=== PATIENT | male | born 1965 | race Caucasian/White ===

== ENCOUNTER 2017-07-25 12:41 | Outpatient (CLI) | payer MEDICARE ==
--- NOTE | 2017-07-25 14:33 | RAD ---
CERVICAL SPINE TWO VIEWS: HISTORY: Fall. Neck injury. COMPARISON: CT exam from 04/23/2017. FINDINGS: Anterior fixation hardware is in place at the C5-6 level without perihardware lucency. There is reve rsal of the normal lordotic curvature. Flowing syndesmophytes suggest ankylosing spondylitis. IMPRESSION: 1. Ankylosing spondylitis. Anterior operative fixation of the lower cervical spine. 2. No acute osseous abnormalities are demonstrated. POS: [facility]
== END 2017-07-25 12:42 | disposition home or self-care (01) ==
LOC: TBSIIMAG 12:41
PROVIDERS: ATTEND Neurological Surgery
DX: S12.9XXA Fracture of neck, unspecified, initial encounter (principal); M45.2 Ankylosing spondylitis of cervical region
CPT/HCPCS: 72040

== ENCOUNTER 2018-05-02 10:41 | Day surgery (SDC) | payer MEDICARE, OTHER ==
[2018-05-02] MEDS ORDERED: PROPOFOL 200 MG/20 ML VIAL ONE (14:16)
[2018-05-02] MEDS ORDERED: Lidocaine 1% PF 5 ML VIAL ONE (14:16)
--- NOTE | 2018-05-02 17:03 | OP ---
DATE OF PROCEDURE: 05/02/2018 PROCEDURE: Colonoscopy with polypectomy and biopsy. INDICATION FOR PROCEDURE: Screening for malignant neoplasm of the colon (no family history of colon polyps or colon cancer). DESCRIPTION OF PROCEDURE: After the risks and benefits of the procedure were explained to the patien t including risk of bleeding, infection, perforation, reactions to anesthesia, aspiration and/or pain , informed consent was obtained. The patient was then taken to the endoscopy suite where deep sedati on was administered via propofol and anesthesia support. Once adequate sedation was achieved, a digi moi rectal examination was performed. Once this was complete, the standard colonoscope was introduce d into the rectum and advanced to the terminal ileum with no difficulty. The quality of the prep was excellent. The patient tolerated the procedure well with no immediate perioperative complications. DIGITAL RECTAL EXAMINATION: Normal external examination. COLON FINDINGS: Normal appearing mucosa was seen within the terminal ileum as well as at the ileocec al valve and appendiceal orifice. Normal appearing mucosa was seen in the cecum and ascending colon, 2 polyps measuring 3 mm in size were seen in the transverse colon and completely removed with cold s nare polypectomy. They were retrieved and placed in specimen jar for evaluation, four additional judy yps measuring 3-4 mm in size were seen in the descending colon and completely removed with cold snare polypectomy. They were retrieved and placed in a specimen jar for evaluation. Normal appearing muc sawyer was seen in the sigmoid colon; however, at approximately 10-15 cm past the anal verge, there were patches of increased mucosal erythema as well as superficial ulceration without any evidence of acti ve/recent bleeding seen. Multiple biopsies were taken from this area for further evaluation. Otherw ise, the remainder of the rectum appeared normal. On rectal retroflexion, small internal hemorrhoids and hypertrophied anal papillae were seen. IMPRESSION: 1. Two 3 mm polyp seen in the transverse colon and completely removed with cold snare polypectomy. 2. Four 3-4 mm descending colon polyps, status post cold snare polypectomy. 3. Small internal hemorrhoids. 4. Hypertrophied anal papillae. 5. Circumferential area between 10-15 cm past the anal verge characterized as increased patchy mucos al erythema and overlying superficial ulceration concerning for the presence of inflammatory bowel di sease versus prep effect on the colon. RECOMMENDATIONS: 1. We will follow up on the biopsy results with repeat colonoscopy interval depending on pathology r esults. 2. We would have the patient follow up in the GI clinic in 3 weeks for further evaluation related to possible inflammatory bowel disease.
== END 2018-05-02 13:45 | disposition home or self-care (01) ==
LOC: SDC 10:41
PROVIDERS: ATTEND Internal Medicine
PROC: 0DBP8ZX Excision of Rectum, Via Natural or Artificial Opening Endoscopic, Diagnostic (ICD-10-PCS; principal; 2018-05-02)
PROC: 0DBL8ZX Excision of Transverse Colon, Via Natural or Artificial Opening Endoscopic, Diagnostic (ICD-10-PCS; principal; 2018-05-02)
PROC: 0DBM8ZX Excision of Descending Colon, Via Natural or Artificial Opening Endoscopic, Diagnostic (ICD-10-PCS; principal; 2018-05-02)
DX: Z12.11 Encounter for screening for malignant neoplasm of colon (principal); D12.4 Benign neoplasm of descending colon; K63.5 Polyp of colon; K64.4 Residual hemorrhoidal skin tags; K64.8 Other hemorrhoids; K62.6 Ulcer of anus and rectum; E11.42 Type 2 diabetes mellitus with diabetic polyneuropathy; I12.9 Hypertensive chronic kidney disease with stage 1 through stage 4 chronic kidney disease, or unspecified chronic kidney disease; E11.22 Type 2 diabetes mellitus with diabetic chronic kidney disease; N18.3 Chronic kidney disease, stage 3 (moderate); M19.90 Unspecified osteoarthritis, unspecified site; G47.00 Insomnia, unspecified; G25.81 Restless legs syndrome; Z87.891 Personal history of nicotine dependence; Z79.4 Long term (current) use of insulin; Z79.82 Long term (current) use of aspirin; Z79.899 Other long term (current) drug therapy; Z88.8 Allergy status to other drugs, medicaments and biological substances
CPT/HCPCS: 88305; J2001; J2704

== ENCOUNTER 2019-01-20 16:59 | Outpatient (CLI) | payer OTHER ==
[2019-01-20 17:36] LABS: Hemoglobin 9.4 g/dL (14.0-18.0); Mean Corpuscular HGB CONC 34.4 g/dL (32.0-36.0); Mean Corpuscular Volume 87.1 fL (78.0-98.0); Mean Platelet Volume 6.8 fL (7.4-10.4); Platelet Count 236 thou/uL (130-400); RBC Distribution Width 12.6 % (11.5-14.5); Red Blood Cell (RBC) Count 3.12 mill/uL (4.70-6.10); White Blood Cell (WBC) Count 8.7 thou/uL (4.8-10.8)
[2019-01-20 17:52] LABS: INR-International Normal Ratio 1.1; PTT 29.9 SEC (22.9-36.1); Prothrombin Time 14.4 SEC (12.0-14.7)
[2019-01-20 18:03] LABS: Anion Gap 15 mmol/L (10-20); BUN (Urea Nitrogen) 40 mg/dL (8.4-25.7); Calc. Creatinine Clearance 0 mL/min (70-130); Calcium 8.6 mg/dL (7.8-10.44); Carbon Dioxide 18 mmol/L (22-29); Chloride 109 mmol/L (98-107); Estimated GFR-MDRD 27; Glucose 84 mg/dL (70-105); Potassium 4.3 mmol/L (3.5-5.1); Sodium 138 mmol/L (136-145)
== END 2019-01-20 17:00 | disposition home or self-care (01) ==
LOC: LABBT 16:59
PROVIDERS: ATTEND Urology
DX: Z01.818 Encounter for other preprocedural examination (principal); Z12.5 Encounter for screening for malignant neoplasm of prostate; N28.9 Disorder of kidney and ureter, unspecified; N13.39 Other hydronephrosis; E66.01 Morbid (severe) obesity due to excess calories; E11.42 Type 2 diabetes mellitus with diabetic polyneuropathy; M45.9 Ankylosing spondylitis of unspecified sites in spine; Z87.442 Personal history of urinary calculi
CPT/HCPCS: 80048; 81001; 85027; 85610; 85730; 87086; 93005; 93010

== ENCOUNTER 2019-01-21 05:55 | Day surgery (SDC) | payer OTHER ==
[2019-01-20 17:44] VITALS: BMI 40.6
--- NOTE | 2019-01-21 08:07 | CT ---
CT abdomen noncontrast CT pelvis noncontrast: (Urolithiasis protocol) DATE: 01/21/2019 HISTORY: 53-year-old male with right obstructive uropathy COMPARISON: No prior CTs of abdomen and pelvis TECHNIQUE: IV injection of iodinated contrast media: None Oral contrast media: None FINDINGS: Other than for urolithiasis, the lack of IV and oral contrast limits the evaluation. There is a 12 x 7 x 10 mm calculus in the right distal ureter. It is at the mid sacral level, somewha t superior to the acetabular level. At the L4-5 level there is a 13 x 8 x 12 mm right ureteral calculus. Slightly superior to that there is an 18 x 17 x 9 mm right ureteral calculus at the upper L4 level, i n the proximal right ureter. In a posteriorly located right renal calyx, there is a 14 x 10 x 13 mm calculus. The right kidney is slightly malrotated. There is moderate dilation of the right renal collecting system. There is little or no edema in the perirenal space. There is no calculus in the left ureter, bladder, or left kidney. No left hydronephrosis. No colonic diverticulitis. No small bowel dilation. No appendicitis. Within the limitations of a nonc ontrast scan, no obvious major pathology of abdominal aorta, left kidney, adrenals, or spleen. Cluster of coarse calcifications at tail of pancreas. Smaller group of calcifications at head of panc reas. Rest of pancreas is unremarkable with no surrounding fat stranding or pancreatic ductal dilation. No ascites or pneumoperitoneum. Syndesmophytes fusing the entire lumbar spine. 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 IMPRESSION: 1) right-sided obstructive uropathy with 3 moderately large right ureteral calculi causing moderate r ight hydronephrosis. 2) right nephrolithiasis with a moderately large right renal calculus. 3) mildly malrotated right kidney. 4) ankylosing spondylitis. 5) pancreatic calcifications: Evidence for chronic pancreatitis
--- NOTE | 2019-01-21 09:32 | RAD ---
KUB: INDICATION: Preop evaluation. COMPARISON: CT of the abdomen and pelvis dated 01/21/2019. FINDINGS: There are prominent stones within the mid right ureter at approximately the L3 and L4 level. These a re very faint and difficult to evaluate on the KUB but are much better detailed on the CT of the abdo men and pelvis dated 01/21/2019 at 7:31 a.m. There is a 1.1 cm calculus at the superior right L3 leve l. There is an 8.6 mm stone at the level of the mid L3 level. There is a 6.7 mm stone seen within t he lower right hemipelvis just proximal to the right UVJ. There is a stable 1.8 cm stone within the inferior pole of the right kidney. There is ankylosis of the SI joint with flowing syndesmophytes of the lumbar spine consistent with ch anges of ankylosing spondylitis. There are calcifications in the region of the pancreas. Enthesopat hic change is seen off of the ischial tuberosities and anterior pelvis. IMPRESSION: 1. Right nephrolithiasis and right ureteral calculi. 2. Findings of ankylosing spondylitis. 3. Pancreatic calcifications likely sequelae of chronic pancreatitis. POS: [facility]
[2019-01-21] MEDS ORDERED: Iothalamate Meglumine 60% 50 ML VIAL FS ONE (12:31)
[2019-01-21] MEDS ORDERED: Levofloxacin 500 mg/D5W 100 ml Premix Bag ONE (12:32)
[2019-01-21] MEDS ORDERED: Fentanyl 100 MCG/2 ML VIAL ONE (12:42)
[2019-01-21] MEDS ORDERED: ePHEDrine 50 MG/ML VIAL ONE (13:38)
[2019-01-21] MEDS ORDERED: PROPOFOL 200 MG/20 ML VIAL ONE (13:38)
[2019-01-21] MEDS ORDERED: Ondansetron PF 4 MG/2 ML Vial ONE (13:38)
[2019-01-21] MEDS ORDERED: Lidocaine 1% PF 5 ML VIAL ONE (13:38)
[2019-01-21] MEDS ORDERED: Succinylcholine Chloride 20 MG/ML 10 ml SYRINGE FS ONE (13:38)
[2019-01-21] MEDS ORDERED: Phenazopyridine HCl 97.5 MG TABLET ONE (14:10)
--- NOTE | 2019-01-21 15:34 | RAD ---
RETROGRADE IVP: HISTORY: Right ureteral calculi. Stent placement. COMPARISON: None. FINDINGS: Two intraoperative fluoroscopic views demonstrate a right-sided double-J ureteral stent. Contrast is noted in the dilated right intrarenal collecting system as well as the urinary bladder. IMPRESSION: Intraoperative fluoroscopy as above. POS: [facility]
--- NOTE | 2019-01-21 20:51 | OP ---
DATE OF PROCEDURE: 01/21/2019 PREOPERATIVE DIAGNOSES: 1. A 53-year-old male with history of morbid obesity, diabetes with history of kidney stones, prior ureteroscopy and laser lithotripsy at an outside facility. 2. Acute renal insufficiency, renal bladder ultrasound demonstrating no significant urine output from the right kidney. 3. CT staging demonstrates: Right lower pole stone 1.3 x 1.1 cm, Hounsfield unit 500, right mid ureteral calculi L4 measuring 1.4 x 1.3 x 1.1 cm, second stone in the ureter just distal to this measuring 1.1 cm x 9 mm, third ureteral stone at the S4 level measuring 9 mm x 8 mm. 4. Left kidney unremarkable on CT. POSTOPERATIVE DIAGNOSES: 1. A 53-year-old male with history of morbid obesity, diabetes with history of kidney stones, prior ureteroscopy and laser lithotripsy at an outside facility. 2. Acute renal insufficiency, renal bladder ultrasound demonstrating no significant urine output from the right kidney. 3. CT staging demonstrates: Right lower pole stone 1.3 x 1.1 cm, Hounsfield unit 500, right mid ureteral calculi L4 measuring 1.4 x 1.3 x 1.1 cm, second stone in the ureter just distal to this, measuring 1.1 cm x 9 mm, third ureteral stone at the S4 level measuring 9 mm x 8 mm. 4. Left kidney unremarkable on CT. PROCEDURES PERFORMED: Cystoscopy and right retrograde pyelogram 6 x 30 double-J ureteral stent placement. ANESTHESIA: General. COMPLICATIONS: None apparent. DISPOSITION: To recovery room in stable condition. SPECIMENS: None. INTRAOPERATIVE FINDINGS: 1. Coapt lateral lobes of the prostate with no significant outlet obstruction SVML about 2 cm. 2. Bladder is grossly unremarkable. 3. Right retrograde pyelogram demonstrating moderate to severe hydronephrosis, filling defect in the left distal mid ureter consistent with a large stone burden as above. INDICATIONS FOR PROCEDURE AND HISTORY: Mr. Lerner is a 53-year-old male with diabetes, who was worked in my clinic yesterday afternoon. He has stopped his Farxiga, NSAIDs, and MICHAEL inhibitor due to acute renal insufficiency by Nephrology. Renal bladder ultrasound obtained by Nephrology demonstrated no significant efflux from the right kidney. He has had minimal discomfort. I did explain to the patient this is concerning for minimally functioning right kidney, as he has no significant pain and no output from his right kidney, advised regarding urgent CT, cysto retrograde stent. He did obtain a CT scan this morning on arrival, unfortunately the CT demonstrates multiple stones as above. Given the stone nidus, I informed him highly likely he would require nephrostomy tube if I am unable to place the ureteral stent. He desired to proceed. DESCRIPTION OF PROCEDURE: After an informed consent was signed, the patient was taken to the operating room, placed in dorsal lithotomy position with the genital area prepped and draped in the usual surgical sterile fashion. A 21-[place]orese cystoscope was utilized for cystoscopy, which demonstrated normal bladder mucosa. There was no evidence of stricture. Coapting lateral lobes with nonobstructing prostate. Bladder was entered, which demonstrated no significant pathology of concern. The ureteral orifice identified in normal anatomical location about 5 to 6 mm away from the bladder neck. At this time, we intubated the right UO. Retrograde pyelogram demonstrated a large filling defect in the distal ureter consistent with CT. I was able to pass the stone at it appears to be soft. A 0.35 Sensor wire was passed to the level of the mid ureter. We passed the stent to the second nidus in the mid ureter. Retrograde pyelogram was performed, which I was able to opacify the upper collecting system with moderate to severe hydro. A 0.35 Sensor wire was able to be passed without difficulty into the right mid pole. An open-ended catheter was then passed to the level of the renal calyx, and a retrograde pyelogram confirmed proper placement of the wire. A 6 x 30 double-J ureteral stent was passed without difficulty. Upon placing a stent, we did see some efflux from the right kidney consistent with sediment stone debris. No significant pyonephrosis was grossly appreciated. It appeared the stone is soft. Hounsfield unit is 500. We will need to check a uric acid level, his urine pH is 5.5. However, prior to proceeding with stone surgery, I would recommend Lasix renal scan to assess for renal function. He is discharged with ciprofloxacin for course of 5 days until followup appointment when culture can be reviewed. Carey 5/325 #30 one p.o. q.6 to 8 hours p.r.n., Colace 100 mg one p.o. b.i.d., Azo [id number] p.r.n. He is to continue his Flomax. Job ID: [id number] LUCIO
== END 2019-01-21 16:00 | disposition home or self-care (01) ==
LOC: SDC 05:55
PROVIDERS: ATTEND Urology
PROC: 0T768DZ Dilation of Right Ureter with Intraluminal Device, Via Natural or Artificial Opening Endoscopic (ICD-10-PCS; principal; 2019-01-21)
DX: N13.2 Hydronephrosis with renal and ureteral calculous obstruction (principal); N17.9 Acute kidney failure, unspecified; G25.81 Restless legs syndrome; K21.9 Gastro-esophageal reflux disease without esophagitis; E78.00 Pure hypercholesterolemia, unspecified; M19.90 Unspecified osteoarthritis, unspecified site; N52.9 Male erectile dysfunction, unspecified; E11.42 Type 2 diabetes mellitus with diabetic polyneuropathy; N40.1 Benign prostatic hyperplasia with lower urinary tract symptoms; N13.8 Other obstructive and reflux uropathy; E66.01 Morbid (severe) obesity due to excess calories; Z68.41 Body mass index [BMI] 40.0-44.9, adult; Z79.4 Long term (current) use of insulin; Z79.82 Long term (current) use of aspirin; Z79.899 Other long term (current) drug therapy; Z88.6 Allergy status to analgesic agent; Z88.8 Allergy status to other drugs, medicaments and biological substances; Z91.09 Other allergy status, other than to drugs and biological substances
CPT/HCPCS: 36416; 74018; 74176; 74420; C1758; C1769; J1956; J2001; J2405; J2704; J3010; J3490; Q9961

== ENCOUNTER 2019-02-05 06:35 | Outpatient (CLI) | payer OTHER ==
[2019-02-05 09:40] LABS: Bilirubin Negative (Negative); Blood, Urine Moderate (Negative); Clarity CLOUDY (Clear); Glucose, Urine (Dipstick) Negative (Negative); Leukocyte Negative (Negative); Nitrite Negative (Negative); Protein, Urine (Dipstick) 100 mg/dL (Neg-Trace); Specific Gravity, Urine 1.008 (1.002-1.036); Urobilinogen 0.2 mg/dL (0.2-1.0); pH, Urine 5.5 (5.0-9.0)
[2019-02-05 09:43] LABS: Bacteria/HPF None Seen HPF (None Seen)
[2019-02-05 09:44] LABS: Pathc Cast-AUWi Flag 5.71 (0-2.49)
[2019-02-05 09:55] LABS: Hyaline Casts/LPF 0-3 HYALINE CAST LPF (0-3 Hyaline); Other Casts/LPF None Seen LPF (0-3 Hyaline)
[2019-02-05 09:57] LABS: Squamous Epithelial 0-3 HPF (0-3); Transitional Epithelial 0-3 HPF (0-3)
[2019-02-05 10:04] LABS: Anion Gap 11 mmol/L (10-20); BUN (Urea Nitrogen) 42 mg/dL (8.4-25.7); Calc. Creatinine Clearance 0 mL/min (70-130); Calcium 9.3 mg/dL (7.8-10.44); Carbon Dioxide 23 mmol/L (22-29); Chloride 110 mmol/L (98-107); Estimated GFR-MDRD 23; Glucose 90 mg/dL (70-105); Potassium 4.2 mmol/L (3.5-5.1); Sodium 140 mmol/L (136-145)
--- NOTE | 2019-02-05 10:31 | NM ---
RADIONUCLIDE DIURETIC RENOGRAM: HISTORY: Calculus of kidney. RADIOPHARMACEUTICAL: 8.2 mCi Technetium 99m-___ intravenously. DIURETIC: 40 mg IV Lasix administered 15 minutes prior to the ingestion of the radiopharmaceutical. Exam was p erformed with a Hernandes catheter in place. FINDINGS: Correlation is made with a CT stone protocol of 01/21/2019. There is decreased flow and slow tracer uptake by the right kidney compared to the left. There is no rmal tracer excretion by the left kidney into the left ureter and the bladder. There is slow tracer excretion by the right kidney into the right ureter and urinary bladder. The differential function measures 71% on the left and 29% on the right. The renogram curves demonst rate downsloping in the excretion phase in the left kidney and slowly rising and very slow downslopin g of the right renogram curve. IMPRESSION: 1. Findings are suggestive of right-sided urinary tract obstruction. 2. Decreased flow and function of the right kidney. POS: [facility]
== END 2019-02-05 06:36 | disposition home or self-care (01) ==
LOC: NM 06:35
PROVIDERS: ATTEND Urology
DX: N20.0 Calculus of kidney (principal); N28.9 Disorder of kidney and ureter, unspecified; N13.39 Other hydronephrosis; R93.421 Abnormal radiologic findings on diagnostic imaging of right kidney
CPT/HCPCS: 78708; 80048; 81003; 81015; 84550; A4641; A9562

== ENCOUNTER 2019-02-23 09:02 | Outpatient (CLI) | payer OTHER ==
[2019-02-23 13:02] LABS: Hemoglobin 9.5 g/dL (14.0-18.0); Mean Corpuscular HGB CONC 35.6 g/dL (32.0-36.0); Mean Corpuscular Hemoglobin 30.9 pg (27.0-31.0); Mean Corpuscular Volume 86.9 fL (78.0-98.0); Mean Platelet Volume 7.1 fL (7.4-10.4); Platelet Count 226 thou/uL (130-400); RBC Distribution Width 12.3 % (11.5-14.5); Red Blood Cell (RBC) Count 3.08 mill/uL (4.70-6.10); White Blood Cell (WBC) Count 8.9 thou/uL (4.8-10.8)
[2019-02-23 13:08] LABS: PTT 30.7 SEC (22.9-36.1); Prothrombin Time 13.5 SEC (12.0-14.7)
[2019-02-23 13:13] LABS: Bilirubin Negative (Negative); Blood, Urine Moderate (Negative); Clarity CLEAR (Clear); Glucose, Urine (Dipstick) 100 mg/dL (Negative); Leukocyte Trace (Negative); Nitrite Negative (Negative); Protein, Urine (Dipstick) 300 mg/dL (Neg-Trace); Urobilinogen 0.2 mg/dL (0.2-1.0)
[2019-02-23 13:15] LABS: Bacteria/HPF None Seen HPF (None Seen); Hyaline Casts/LPF 0-3 HYALINE CAST LPF (0-3 Hyaline); Squamous Epithelial 0-3 HPF (0-3); WBC/HPF 0-3 HPF (0-3)
[2019-02-23 13:22] LABS: Anion Gap 11 mmol/L (10-20); BUN (Urea Nitrogen) 33 mg/dL (8.4-25.7); Calc. Creatinine Clearance 0 mL/min (70-130); Calcium 9.1 mg/dL (7.8-10.44); Carbon Dioxide 24 mmol/L (22-29); Chloride 109 mmol/L (98-107); Estimated GFR-MDRD 30; Glucose 97 mg/dL (70-105); Potassium 4.4 mmol/L (3.5-5.1); Sodium 140 mmol/L (136-145)
== END 2019-02-23 09:03 | disposition home or self-care (01) ==
LOC: LABBT 09:02
PROVIDERS: ATTEND Surgery
DX: Z01.812 Encounter for preprocedural laboratory examination (principal); N20.0 Calculus of kidney
CPT/HCPCS: 80048; 81001; 85027; 85610; 85730; 87086

== ENCOUNTER 2019-03-11 05:50 | Day surgery (SDC) | payer OTHER ==
[2019-02-23 11:45] VITALS: BMI 39.3
[2019-03-11] MEDS ORDERED: Levofloxacin 500 mg/D5W 100 ml Premix Bag ONE (06:15)
[2019-03-11] MEDS ORDERED: Iothalamate Meglumine 60% 50 ML VIAL FS ONE (06:42)
[2019-03-11] MEDS ORDERED: Fentanyl 250 MCG/5 ML VIAL ONE (07:06)
--- NOTE | 2019-03-11 08:10 | RAD ---
ABDOMEN ONE VIEW: HISTORY: Preoperative evaluation. COMPARISON: 01/21/2019 FINDINGS: Interval placement of a right-sided ureteral stent is seen. An 18 mm calculus in the projection of t he inferior aspect of the right kidney is again seen. There is suggestion of a calculus along the di stal aspect of the ureteral stent, in the pelvis. POS: [facility]
[2019-03-11] MEDS ORDERED: Phenazopyridine HCl 97.5 MG TABLET ONE (11:15)
[2019-03-11] MEDS ORDERED: Lidocaine 1% PF 5 ML VIAL ONE (11:21)
[2019-03-11] MEDS ORDERED: PROPOFOL 200 MG/20 ML VIAL ONE (11:21)
[2019-03-11] MEDS ORDERED: Glycopyrrolate 0.2 MG/ML 5 ML SYRINGE ONE (11:21)
[2019-03-11] MEDS ORDERED: Dexamethasone 20 MG/5 ML VIAL ONE (11:21)
[2019-03-11] MEDS ORDERED: Succinylcholine Chloride 20 MG/ML 10 ml SYRINGE FS ONE (11:21)
[2019-03-11] MEDS ORDERED: PHENYLEPHRINE-NS 100 MCG/ML 10 ML SYRINGE ONE (11:21)
[2019-03-11] MEDS ORDERED: Ondansetron PF 4 MG/2 ML Vial ONE (11:21)
[2019-03-11] MEDS ORDERED: HYDROcodone/Acetaminophen 5/325 mg Tablet ONE (12:43)
--- NOTE | 2019-03-11 12:58 | RAD ---
Single view from a retrograde IVP INDICATION: Ureteral stent Comparison prior KUB dated 03/11/2019 IMPRESSION: Total fluoroscopic time was 0.7 minutes. Total exposure was 31.94 mCi. There right ureter al stent is unchanged in position. The large inferior pole right renal calculus may have undergone interval lithotripsy. There is 8 mm stone the level of the right renal pelvis. There is suspected 4.5 mm stone adjacent to the right proximal ureteral stent. Bowel gas pattern is unobstructed. There is SI joint ankylosis and flowing syndesmophytes of the lower lumbar spine consistent with changes of ankylosing spondylitis.
--- NOTE | 2019-03-11 14:18 | OP ---
DATE OF PROCEDURE: 03/11/2019 PREOPERATIVE DIAGNOSES: A 53-year-old male with history of diabetes, chronic renal insufficiency with multiple large right stone burden: Right lower pole stone measuring 1.3 cm x 1.1 cm, right L4 ureteral stone 1.4 cm x 1.3 cm x 1.1 cm, L4- L5 ureteral stone 1.1 cm x 9 mm, right S4 ureteral stone measuring 9 mm. Difficult airway due to ankylosing spondylolisthesis. POSTOPERATIVE DIAGNOSES: A 53-year-old male with history of diabetes, chronic renal insufficiency with multiple large right stone burden: Right lower pole stone measuring 1.3 cm x 1.1 cm, right L4 ureteral stone 1.4 cm x 1.3 cm x 1.1 cm, L4- L5 ureteral stone 1.1 cm x 9 mm, right S4 ureteral stone measuring 9 mm. PROCEDURES PERFORMED: Cystoscopy; right 6 x 30 double-J ureteral stent exchange ; ureteroscopy, rigid and flexible; pyeloscopy; laser lithotripsy of multiple right ureteral calculi, renal calculi; basket extraction of stone fragments. Surgical modifier 22 due to increased procedural services due to extensive ureteral renal calculi ANESTHESIA: General. COMPLICATIONS: None apparent. DISPOSITION: To recovery room in stable condition, extubated. INTRAOPERATIVE FINDINGS: 1. No evidence of urethral stricture. Mild resistance passing the scope at the fossa navicularis, however, no overt fossa stricture. 2. Bilobar coapting lateral lobes with no significant outlet obstruction. 3. Bladder grossly unremarkable. 4. Right multiple ureteral stone burden large as above, right ureteral stone in the L3-L4 ureter is imbedded in the ureteral mucosa. INDICATIONS FOR PROCEDURE AND HISTORY: Mr. Lerner is a 53-year-old morbidly obese male with history of diabetes, history of chronic kidney stones, renal insufficiency, who presented from Nephrology due to worsening renal insufficiency and hydronephrosis. He did undergo ureteral stent placement due to large stone burden as above, no significant output on a renal ultrasound was noted from the right ureter. A Lasix renal scan with indwelling ureteral stent demonstrated diminished function of the right kidney at 29%. Although it is diminished, it is salvageable. I informed the patient that we should proceed with staged ureteroscopy and laser lithotripsy. He inquired regarding right nephrectomy. I informed him that as his kidney function is greater than 10 to 15%, with underlying comorbidities of diabetes, renal salvage procedures i.e. ureteroscopy, stone manipulation should be performed. He agrees. He is known to have a difficult airway. Due to difficult airway, stone burden, he has been fully informed that he will require multiple surgical interventions to clear his right ureteral and renal stone debris. Risks and complications of the procedure were reviewed with him in detail including, but not limited to, bleeding, pain, infection, injury to adjacent organs, urosepsis, urethral stricture, PE, DVT, perioperative morbidity, mortality, and chronic pain. Questions encouraged and answered, and he desired to proceed. DESCRIPTION OF PROCEDURE: After an informed consent was signed, the patient was taken to the operating room, placed in a dorsal lithotomy position. The patient required multiple anesthesiologists to intubate, as he has a difficult airway. This was subsequently performed and the patient was placed in lithotomy with bilateral OTIS hose, SCDs, and broad-spectrum antibiotics provided. A 21-Estonian cystoscope was utilized for cystoscopy. There was minimal mild resistance at the fossa, which was passed without significant issues. No urethral stricture was noted. Bilobar hyperplasia with no significant outlet obstruction was noted on cystoscopy. The previously placed ureteral stent was removed to the level of the meatus and a 0.35 Sensor wire was placed through the stent into the right mid to lower pole. At this time, a rigid ureteroscopy was performed, which demonstrated a large stone burden in the ureter on CT dimensions as above. We systematically treated his distal stone, then progressed our way up to his mid and proximal ureteral calculi. His ureteral stone at L4-L5 ureter was imbedded in the ureteral mucosa. Using 200 micron to 365 laser fiber, we laser lithotripsied each stone moiety. The stone was bit soft, we did make progress treating his ureteral calculi. His ureteral stone at the L4- L5 was challenging as it was imbedded, but we were able to safely laser lithotripsy the stone off the mucosa and successfully treat all 3 ureteral stones. Some of the large stone debris did migrate from the most proximal stone at the L4 into the upper pole after laser lithotripsying and rendering it free from the ureteral mucosa. As the ureter was clear for stone debris, with basket extraction, I surveyed the collecting system. Some of the larger stone debris from the fragmentation migrated into the upper pole and these were laser lithotripsied. In the kidney, I alternated between 275 and 200 micron ball-tip fiber to laser lithotripsy the stones. We laser lithotripsied the residual stone that migrated into the upper pole. We then proceeded with a 200 ball-tip fiber into the lower pole and this was laser lithotripsied. We did make progress treating all four stones, however, given the elapsed time and significant stone debris impeding further visualization in the collecting system, a decision was made to terminate this ureteroscopic procedure. We did make significant improvement of his stone burden clearing his ureteral stone, the lower pole stone was laser lithotripsied and what remained in the collecting system are likely 5 to 6 mm stone debris, few in number, most of which are dustlike caliber. I surveyed the ureter, which demonstrated no evidence of ureteral perforation. The ureteroscope was advanced distally, surveying the ureter. Prior to performing the ureteroscopy, a ureteroscopic laser lithotripsy was performed of the most distal stone with the rigid. I could not pass the rigid scope to engage the L4 ureteral stone and L5 ureter stone. Therefore, we did pass a second safety wire, 0.35 Super Stiff and a 13/15-Estonian x 46 cm navigator was able to be passed as it was nice and dilated. With the sheath in place, we performed flexible ureteroscopy to treat his two proximal ureteral calculi. At the end of the procedure, sheath was removed. A 6 x 30 double-J ureteral stent was replaced without significant issues. Proper coil was seen in the kidney and bladder. We Ellik evacuated some of the stone debris sediment in the bladder, what remained are punctate stone debris within the bladder. He tolerated the procedure well. Due to his difficult airway, we will monitor him postop, if he is cleared by Anesthesia , we will discharge home. He will follow up with me next Saturday to schedule his second-look ureteroscopy, laser lithotripsy. I did discuss the case with Dr. Vernon Noyola, we will need to let the Anesthesia Know that he has a difficult airway, so they may prepare appropriately. Job ID: [id number] MTDD
== END 2019-03-11 14:35 | disposition home or self-care (01) ==
LOC: SDC 05:50
PROVIDERS: ATTEND Urology
PROC: 0TF38ZZ Fragmentation in Right Kidney Pelvis, Via Natural or Artificial Opening Endoscopic (ICD-10-PCS; principal; 2019-03-11)
PROC: 0T768DZ Dilation of Right Ureter with Intraluminal Device, Via Natural or Artificial Opening Endoscopic (ICD-10-PCS; principal; 2019-03-11)
DX: N13.2 Hydronephrosis with renal and ureteral calculous obstruction (principal); E11.42 Type 2 diabetes mellitus with diabetic polyneuropathy; E11.22 Type 2 diabetes mellitus with diabetic chronic kidney disease; N18.9 Chronic kidney disease, unspecified; E78.00 Pure hypercholesterolemia, unspecified; K21.9 Gastro-esophageal reflux disease without esophagitis; M19.90 Unspecified osteoarthritis, unspecified site; E66.01 Morbid (severe) obesity due to excess calories; Z68.39 Body mass index [BMI] 39.0-39.9, adult; Z79.4 Long term (current) use of insulin; Z79.899 Other long term (current) drug therapy; Z88.8 Allergy status to other drugs, medicaments and biological substances
CPT/HCPCS: 36416; 74018; 74420; 82365; 88300; C1758; C1769; J1100; J1956; J2001; J2405; J2704; J3010

== ENCOUNTER 2019-03-27 10:08 | Outpatient (CLI) | payer OTHER ==
[2019-03-27 11:31] LABS: Hemoglobin 9.4 g/dL (14.0-18.0); Mean Corpuscular HGB CONC 34.4 g/dL (32.0-36.0); Mean Corpuscular Hemoglobin 29.5 pg (27.0-31.0); Mean Corpuscular Volume 85.8 fL (78.0-98.0); Mean Platelet Volume 7.2 fL (7.4-10.4); Platelet Count 228 thou/uL (130-400); RBC Distribution Width 12.4 % (11.5-14.5); Red Blood Cell (RBC) Count 3.19 mill/uL (4.70-6.10); White Blood Cell (WBC) Count 8.9 thou/uL (4.8-10.8)
[2019-03-27 11:37] LABS: INR-International Normal Ratio 1.1; PTT 29.5 SEC (22.9-36.1)
[2019-03-27 11:57] LABS: Anion Gap 14 mmol/L (10-20); BUN (Urea Nitrogen) 38 mg/dL (8.4-25.7); Calc. Creatinine Clearance 0 mL/min (70-130); Calcium 8.5 mg/dL (7.8-10.44); Carbon Dioxide 18 mmol/L (22-29); Chloride 111 mmol/L (98-107); Estimated GFR-MDRD 36; Glucose 100 mg/dL (70-105); Potassium 4.4 mmol/L (3.5-5.1); Sodium 139 mmol/L (136-145)
== END 2019-03-27 10:09 | disposition home or self-care (01) ==
LOC: LABBT 10:08
PROVIDERS: ATTEND Urology
DX: Z01.818 Encounter for other preprocedural examination (principal); Z12.5 Encounter for screening for malignant neoplasm of prostate; N20.0 Calculus of kidney; N28.9 Disorder of kidney and ureter, unspecified; E66.01 Morbid (severe) obesity due to excess calories; N13.39 Other hydronephrosis; E11.42 Type 2 diabetes mellitus with diabetic polyneuropathy
CPT/HCPCS: 80048; 85027; 85610; 85730; 93005; 93010

== ENCOUNTER 2019-03-30 05:49 | Day surgery (SDC) | payer OTHER ==
[2019-03-27 10:35] VITALS: BMI 39.2
[2019-03-30] MEDS ORDERED: Levofloxacin 500 mg/D5W 100 ml Premix Bag ONE (06:29)
[2019-03-30] MEDS ORDERED: Fentanyl 100 MCG/2 ML VIAL ONE (07:07)
[2019-03-30] MEDS ORDERED: Midazolam HCl 2 mg/2 ml Vial ONE (07:07)
[2019-03-30] MEDS ORDERED: Ketamine 50 MG/ML (10ML VIAL) ONE (07:07)
[2019-03-30] MEDS ORDERED: Iothalamate Meglumine 60% 50 ML VIAL FS ONE (07:09)
[2019-03-30] MEDS ORDERED: Lidocaine 4% PF 5 ML AMP NEB SCH (07:15)
[2019-03-30] MEDS ORDERED: Lidocaine Viscous Sol 2% 15 ml UD Cup ONE (07:20)
[2019-03-30] MEDS ORDERED: Phenazopyridine HCl 97.5 MG TABLET ONE ×2 (09:42)
[2019-03-30] MEDS ORDERED: Oxybutynin 5 MG TAB ONE (09:42)
--- NOTE | 2019-03-30 10:09 | RAD ---
KUB: COMPARISON: 03/11/2019. HISTORY: Preoperative x-ray. Kidney stones. FINDINGS: A single view of the abdomen shows a nonspecific, nonobstructed bowel gas pattern. Calcifications in the left lower quadrant of the abdomen represent pancreatic calcifications seen on prior CT. There is a right-sided ureteral stent which appears in good position. No obvious calcifications are seen a long the course of the stent. No calcifications project over either renal shadow. IMPRESSION: Right ureteral stent as above. POS: [facility]
--- NOTE | 2019-03-30 10:15 | RAD ---
Exam: Intraoperative fluoroscopy COMPARISON: 03/11/2019 HISTORY: Ureteral stent FINDINGS: Single fluoroscopic view demonstrates a stable appearing right-sided ureteral stent IMPRESSION: Intraoperative fluoroscopy as above
--- NOTE | 2019-03-30 15:32 | OP ---
DATE OF PROCEDURE: 03/30/2019 METAL PRODUCTS VIEWER: Terry Rviera MD PREOPERATIVE DIAGNOSES: 1. A 53-year-old male with history of chronic renal insufficiency secondary to multiple right stone burden: Right lower pole 1.3 x 1.1 cm, right L4 ureteral stone 1.4 x 1.3 x 1.1 cm, L4-L5 ureteral stone 1.1 cm x 9 mm, right S4 ureteral stone 9 mm. 2. Difficult airway due to ankylosing spondylo-lithiasis. POSTOPERATIVE DIAGNOSES: 1. A 53-year-old male with history of chronic renal insufficiency secondary to multiple right stone burden: Right lower pole 1.3 x 1.1 cm, right L4 ureteral stone 1.4 x 1.3 x 1.1 cm, L4-L5 ureteral stone 1.1 cm x 9 mm, right S4 ureteral stone 9 mm. 2. Difficult airway due to ankylosing spondylo-lithiasis. PROCEDURES PERFORMED: Cystoscopy, right 6 x 30 double-J ureteral stent exchange, stage ureteroscopy, pyeloscopy, laser lithotripsy of renal calculi, basket extraction of stone fragments, and retrograde pyelogram. ANESTHESIA: General. COMPLICATIONS: None apparent. DISPOSITION: To recovery room, extubated in stable condition. INTRAOPERATIVE FINDINGS: 1. No evidence of urethral stricture, mild resistance passing the scope at the fossa navicularis, however, no overt fossa stricture. 2. Bilobar coapting lateral lobes with no significant outlet obstruction. 3. Bladder grossly unremarkable. 4. Residual stone burden in the right upper pole, fragmented debris. INDICATIONS FOR PROCEDURE AND HISTORY: Mr. Lerner is a 53-year-old morbidly obese male with history of diabetes, chronic renal insufficiency, who presented from Nephrology due to worsening renal insufficiency and hydronephrosis. A renal ultrasound was done demonstrating no evidence of significant output from the right UO concerning for nonfunctioning kidney. Further workup with the ureteral stent demonstrated diminished function of the right kidney at 29%. However, this is enough to salvage the right kidney and I informed the patient to proceed with ureteroscopy and laser lithotripsy. Risks and complications of the procedures were reviewed in detail including, but not limited to, bleeding, pain, infection, injury to adjacent organs, risks, PE and DVT, and perioperative morbidity and mortality. He has been fully informed regarding his difficult airway and options of elective tracheostomy, which he declined. He presents today for staged ureteroscopy and laser lithotripsy. DESCRIPTION OF PROCEDURE: After an informed consent was signed, the patient was taken to the operating room, placed in a dorsal lithotomy position with the genital area prepped and draped in the usual surgical sterile fashion. A 21-[place] cystoscope was utilized for cystoscopy. Again, as previous, there was mild resistance at the fossa, however, scope was maneuvered without difficulty. The anterior and posterior urethra were grossly unremarkable with no evidence of urethral stricture or obstruction from the prostatic hyperplasia itself. Coapting lateral lobes with no significant obstruction were noted. Bladder was entered, which demonstrated previous ureteral stent, which was removed at the level of the meatus. A 0.35 Sensor wire was passed through the stent, however, it would not go past beyond the mid ureter. Therefore, I did pull the stent out completely and transitioned to a 10-[place] dual-lumen access sheath. With a 10-[place] dual-lumen access sheath, we performed a retrograde pyelogram and the wire did subsequently passed to the level of the right upper pole without difficulty. A second safety wire using a 0.35 Super Stiff wire was placed into the right upper pole. At this time, the dual-lumen access sheath was removed and a 13/15-[place] x 46 cm navigator was able to be passed into the proximal ureter with ease as he was passively dilated as well as having a longstanding obstruction from large ureteral calculi. As the ureteral stone was cleared from the last ureteroscopy, I passed a navigator with ease to the level of the proximal ureter. A surveillance ureteroscopy was performed, which demonstrated fragmented debris in the right upper pole. The previous right lower pole stone was no longer present as I did make progress laser lithotripsy in the stone. The stone debris appeared to have migrated into the right upper pole and the two calyces in the upper pole are moiety. There was a large stone burden about 8 mm, which was laser lithotripsied and basket extracted. Most of the stone debris was punctate 2 mm to 3 mm in nature. We did spend significant amount of time, basket extracting those that were amendable. Most of the stone debris was basket extracted. The residual stones were too small to basket given there was small nidus. I did spend some time in laser lithotripsied the residual stone dust-like debris even smaller. At the end of the procedure, what was left was most likely will be passed by the patient as there were minute dust-like stone debris with significant stone debris clearance. The ureter was surveyed, which demonstrated no evidence of ureteral mucosa trauma or further stone debris of concern. A 6 x 30 double-J ureteral stent was passed without difficulty with adequate coil in the kidney and in the bladder. Bladder was completely emptied and he tolerated the procedure well. He is discharged with ciprofloxacin 500 mg one p.o. b.i.d. for 5 days, one p.o. prior to his cysto stent pull appointment on April 09, Ultram #30 one p.o. q.4-6 hours p.r.n. and Azo p.r.n. He is to continue his Urocit-K b.i.d., and his Flomax for now. His serum uric acid was within normal limits, therefore on observation. He will obtain a staging CT on April 08, day prior to his cysto stent pull, tentatively scheduled for my office on April 09. Job ID: [id number]
== END 2019-03-30 12:35 | disposition home or self-care (01) ==
LOC: SDC 05:49
PROVIDERS: ATTEND Urology
PROC: 0TF38ZZ Fragmentation in Right Kidney Pelvis, Via Natural or Artificial Opening Endoscopic (ICD-10-PCS; principal; 2019-03-30)
PROC: 0T768DZ Dilation of Right Ureter with Intraluminal Device, Via Natural or Artificial Opening Endoscopic (ICD-10-PCS; principal; 2019-03-30)
DX: N13.2 Hydronephrosis with renal and ureteral calculous obstruction (principal); E11.22 Type 2 diabetes mellitus with diabetic chronic kidney disease; N18.9 Chronic kidney disease, unspecified; E78.00 Pure hypercholesterolemia, unspecified; E66.01 Morbid (severe) obesity due to excess calories; K21.9 Gastro-esophageal reflux disease without esophagitis; M19.90 Unspecified osteoarthritis, unspecified site; Z68.39 Body mass index [BMI] 39.0-39.9, adult; Z79.899 Other long term (current) drug therapy; Z88.8 Allergy status to other drugs, medicaments and biological substances; Z79.4 Long term (current) use of insulin
CPT/HCPCS: 36416; 74018; 74420; 82365; 88300; C1758; C1769; J1956; J2250; J3010

== ENCOUNTER 2019-04-08 13:18 | Outpatient (CLI) | payer OTHER ==
--- NOTE | 2019-04-08 14:41 | CT ---
CT Stone Protocol 04/08/2019 12:00 AM HISTORY: Post lithotripsy 1 week secondary to right renal calculus. Right ureteral stent in place. COMPARISON: 01/21/2019 Technique: Multiple contiguous axial CT images are obtained through the abdomen and pelvis without IV contrast. Coronal reformats are provided. FINDINGS: This examination is limited for the evaluation of solid organs and vascular structures due to the lac k of intravenous contrast. Lower Chest: Mild groundglass densities as well as linear parenchymal density is seen at the left samira g base. While the linear parenchymal density was seen on the prior exam, the groundglass densities have increased from the prior study. Findings could be related to more acute pneumonitis superimposed on chronic lung changes, but follow-up evaluation is recommended to ensure resolution. The right lung base is clear. Abdomen: Liver: Grossly normal nonenhanced CT appearance. Gallbladder: Decompressed but otherwise also within normal limits for this exam. Pancreas: Scattered calcifications are again seen in the pancreas likely sequela of prior pancreatiti s. Spleen: Grossly normal nonenhanced CT appearance. Adrenals: Grossly normal nonenhanced CT appearance. Kidneys: A right ureteral stent is now noted in place. Previously noted large calculi in the proximal right ureter are no longer visualized likely related to interval treatment. The larger calculus in the posterior inferior pole right kidney is no longer visualized likely related to interval treatment . There is a punctate calculus seen within the midportion right kidney in region of previously noted large nonobstructing calculus on prior exam with an additional tiny punctate nonobstructing gerardo culus seen in the inferior pole right kidney anteriorly. Right hydronephrosis has resolved. No left renal calculus is seen. Ureters: No left ureteral calculus is seen. A right ureteral stent is noted in place, and no definiti ve calculus is seen along the course of the right ureteral stent.. Pelvis: Urinary bladder: Partially distended with ureteral stent in place. Reproductive Organs: No pelvic masses. Lymph Nodes: No enlarged lymph nodes. Bowel: Normal caliber. Appendix: The appendix is normal in caliber. Peritoneum: No free fluid, free air, or fluid collection. Retroperitoneum: within normal limits. Vessels: Minimal vascular calcifications are seen.. Abdominal Wall: within normal limits. Bones: Again noted is evidence of ankylosing spondylitis with syndesmophytes fusing the entire lumbar spine and ankylosis of the bilateral sacroiliac joints and pubic symphysis. IMPRESSION: 1. 1. Interval development of groundglass densities at the left lung base with linear patchy and parench ymal density also seen. These findings may be related to developing pneumonitis at the left lung base superimposed on chronic lung changes. However, follow-up evaluation is recommended to ensure res olution. 2. Interval decrease in right renal and ureteral calculus burden. The right ureteral calculi are no l onger seen, and there are no calculi seen along the course of the right ureter. A few punctate calculi are seen within the inferior pole of the rotated right kidney. Right ureteral stent is noted in place. 3. No left renal or ureteral calculi.
== END 2019-04-08 13:19 | disposition home or self-care (01) ==
LOC: BICCT 13:18
PROVIDERS: ATTEND Urology
DX: N20.0 Calculus of kidney (principal); N13.39 Other hydronephrosis; J98.4 Other disorders of lung; Z96.0 Presence of urogenital implants
CPT/HCPCS: 74176

== ENCOUNTER 2019-04-10 10:59 | Outpatient (CLI) | payer OTHER | END 2019-04-10 11:00 | disposition home or self-care (01) | LOC: DTY/OP 10:59 | PROVIDERS: ATTEND Urology | DX: E66.01 Morbid (severe) obesity due to excess calories (principal) | CPT/HCPCS: 97802 ==

== ENCOUNTER 2019-05-11 13:02 | Outpatient (CLI) | payer OTHER | END 2019-05-11 13:03 | disposition home or self-care (01) | LOC: DTY/OP 13:02 | PROVIDERS: ATTEND Urology | DX: E66.01 Morbid (severe) obesity due to excess calories (principal) | CPT/HCPCS: 97802 ==

== ENCOUNTER 2019-05-18 12:45 | Outpatient (CLI) | payer OTHER ==
--- NOTE | 2019-05-18 13:14 | RAD ---
EXAM: Chest 2 views: HISTORY: Preoperative radiograph prior to cardiac catheterization COMPARISON: 11/12/2013 FINDINGS: There is a normal-sized cardiomediastinal silhouette. There is no evidence of consolidation, mass, or pleural effusion. The bones are unremarkable. IMPRESSION: No evidence of acute cardiopulmonary disease
--- NOTE | 2019-05-18 13:17 | RAD ---
EXAM: Single view of the abdomen HISTORY: Kidney stones; CT abdomen/pelvis 04/08/2019 COMPARISON: 03/30/2019 FINDINGS: Single view of the abdomen shows a nonspecific, nonobstructive bowel gas pattern. Calcifica tions in the left upper quadrant of the abdomen likely represent the pancreatic calcifications seen on CT. No suspicious calcifications are seen. The bones are unremarkable. IMPRESSION: No evidence of renal collecting system calculi
--- NOTE | 2019-05-18 16:25 | NM ---
Radionucleotide renogram HISTORY: Renal stones. Declining renal function. COMPARISON: 02/05/2019. FINDINGS: Medication: 40 mg Lasix given IV 15 minutes prior to the administration of the radiopharmaceutical. Blood flow images show some asymmetry. Greater uptake early on the left than on the right in the nathan rial phase imaging. There is good uptake and washout of radiotracer from the left kidney. Time to maximum 0.1 minutes. T half max 15.2 minutes. Significantly decreased uptake associated with the right kidney. Minimal accumulation of radiotracer and excretion. The radiotracer does become more central upon images later in the exam, centered over the collecting system rather than the cortex. Split function shows 69% of the uptake associated with the left kidney, 31% on the right. Glomerular filtration rate normalized calculated at 39.3 mL/m. IMPRESSION: Overall decreased renal function, especially involving the right kidney compared to left. There is no evidence of hydronephrosis. Radiotracer does not continually increases over the right kidney but becomes focused more over the collecting structures. Component of partial obstruction may still be present.
== END 2019-05-18 12:46 | disposition home or self-care (01) ==
LOC: NM 12:45
PROVIDERS: ATTEND Urology
DX: N20.0 Calculus of kidney (principal); N28.9 Disorder of kidney and ureter, unspecified
CPT/HCPCS: 71046; 74018; 78708; A4641; A9562

== ENCOUNTER 2019-05-18 15:50 | Outpatient (CLI) | payer OTHER ==
[2019-05-18 17:22] LABS: INR-International Normal Ratio 1.1; PTT 30.3 SEC (22.9-36.1); Prothrombin Time 13.9 SEC (12.0-14.7)
[2019-05-18 17:41] LABS: ALT (SGPT) 11 U/L (8-55); AST (SGOT) 12 U/L (5-34); Albumin 3.9 g/dL (3.5-5.0); Alkaline Phosphatase 98 U/L (40-150); Anion Gap 10 mmol/L (10-20); BUN (Urea Nitrogen) 30 mg/dL (8.4-25.7); Bilirubin, Direct 0.1 mg/dL (0.1-0.3); Bilirubin, Total 0.2 mg/dL (0.2-1.2); Calc. Creatinine Clearance 0 mL/min (70-130); Carbon Dioxide 22 mmol/L (22-29); Chloride 109 mmol/L (98-107); Estimated GFR-MDRD 30; Globulin 2.9 g/dL (2.4-3.5); Glucose 91 mg/dL (70-105); Potassium 3.8 mmol/L (3.5-5.1); Protein, Total 6.8 g/dL (6.0-8.3); Sodium 137 mmol/L (136-145)
--- NOTE | 2019-05-24 16:50 | EKG ---
Test Reason : Blood Pressure : / mmHG Vent. Rate : 076 BPM Atrial Rate : 076 BPM P-R Int : 160 ms QRS Dur : 094 ms QT Int : 384 ms P-R-T Axes : 036 027 024 degrees QTc Int : 432 ms Normal sinus rhythm Normal ECG When compared with ECG of 27-MAR-2019 10:47, No significant change was found Confirmed by VLADIMIR WILSON (2) on 05/24/2019 4:49:59 PM Referred By: MARCO ANTONIO Confirmed By:VLADIMIR WILSON
== END 2019-05-18 15:51 | disposition home or self-care (01) ==
LOC: LABBT 15:50
PROVIDERS: ATTEND Internal Medicine Cardiovascular Disease
DX: Z01.818 Encounter for other preprocedural examination (principal); R07.89 Other chest pain
CPT/HCPCS: 80053; 80076; 85610; 85730; 93005; 93010

== ENCOUNTER 2019-05-19 05:48 | Day surgery (SDC) | payer OTHER ==
[2019-05-18 16:05] VITALS: BMI 39.6
[~2019-05-19 05:48] MED LIST: Furosemide 40 MG/4 ML VIAL ONE
[2019-05-19 06:47] LABS: #Eosinphils 0.3 thou/uL (0.0-0.7); #Lymphocytes 1.8 thou/uL (1.20-3.40); #Monocytes 0.5 thou/uL (0.11-0.59); #Neutrophils 4.5 thou/uL (1.40-6.50); %Basophils 0.6 % (0.0-1.0); %Eosinophils 3.9 % (0.0-10.0); %Lymphocytes 25.8 % (21.0-51.0); %Monocytes 6.3 % (0.0-10.0); %Neutrophils 63.4 % (42.0-75.0); Hemoglobin 9.4 g/dL (14.0-18.0); Mean Corpuscular Hemoglobin 30.7 pg (27.0-31.0); Mean Corpuscular Volume 85.1 fL (78.0-98.0); Platelet Count 223 thou/uL (130-400); RBC Distribution Width 12.8 % (11.5-14.5); Red Blood Cell (RBC) Count 3.07 mill/uL (4.70-6.10); White Blood Cell (WBC) Count 7.1 thou/uL (4.8-10.8)
[2019-05-19] MEDS ORDERED: Iopamidol 370 76% 100 ML VIAL ONE (08:43)
[2019-05-19] MEDS ORDERED: Lidocaine 1% (PF) 30 ML VIAL ONE (10:37)
[2019-05-19 11:55] LABS: Anion Gap 11 mmol/L (10-20); BUN (Urea Nitrogen) 33 mg/dL (8.4-25.7); Calc. Creatinine Clearance 69 mL/min (70-130); Calcium 8.9 mg/dL (7.8-10.44); Carbon Dioxide 19 mmol/L (22-29); Chloride 112 mmol/L (98-107); Estimated GFR-MDRD 29; Glucose 120 mg/dL (70-105); Potassium 4.7 mmol/L (3.5-5.1); Sodium 137 mmol/L (136-145)
[2019-05-19] MEDS ORDERED: Midazolam HCl 2 mg/2 ml Vial ONE (12:13)
--- NOTE | 2019-05-19 20:13 | DIS ---
DATE OF ADMISSION: 05/19/2019 DATE OF DISCHARGE: 05/19/2019 DISCHARGE DIAGNOSES: 1. Coronary artery disease. 2. Diabetes mellitus. 3. Hypertension. 4. Dyslipidemia. 5. Diabetes mellitus. 6. Chronic renal insufficiency. HISTORY OF PRESENT ILLNESS: The patient is a 53-year-old gentleman, who presented for evaluation of chest discomfort. The patient reported having left- sided chest pain with and without exertion. The patient underwent a Cardiolite stress test , revealed evidence of inferior ischemia. HOSPITAL COURSE: On 05/19/2019, the patient underwent a left heart catheterization, found to have normal left systolic function. The left anterior descending and left circumflex artery were free of disease. The right coronary artery had a 50% proximal stenosis. The patient was felt to have moderate single-vessel coronary artery disease. The patient will have Imdur added to his medical regimen. The patient is discharged in stable condition.Because of his chronic renal failure he was actively hydrated prior and after the procedure. The patient will have followup monitoring of his creatinine. DISCHARGE MEDICATIONS: 1. Aspirin 81. 2. Vascepa 0.5 four capsules twice a day. 3. Lyrica 100 daily. 4. Flomax 0.4 daily. 5. Hydrochlorothiazide 25 daily. 6. Gemfibrozil 600 daily. 7. Lipitor 80 at bedtime. 8. Tresiba 100 units daily. 19. Trulicity 0.75 mg as directed. Job ID: [id number] MTDD
== END 2019-05-19 20:51 | disposition home or self-care (01) ==
LOC: CCL 05:48
PROVIDERS: ATTEND Internal Medicine Cardiovascular Disease
PROC: B2001ZZ Plain Radiography of Single Coronary Artery using Low Osmolar Contrast (ICD-10-PCS; principal; 2019-05-19)
DX: I25.10 Atherosclerotic heart disease of native coronary artery without angina pectoris (principal); I12.9 Hypertensive chronic kidney disease with stage 1 through stage 4 chronic kidney disease, or unspecified chronic kidney disease; E11.42 Type 2 diabetes mellitus with diabetic polyneuropathy; E11.22 Type 2 diabetes mellitus with diabetic chronic kidney disease; N18.9 Chronic kidney disease, unspecified; E78.5 Hyperlipidemia, unspecified; K21.9 Gastro-esophageal reflux disease without esophagitis; M19.90 Unspecified osteoarthritis, unspecified site; Z79.4 Long term (current) use of insulin; Z79.899 Other long term (current) drug therapy; Z88.1 Allergy status to other antibiotic agents; Z88.8 Allergy status to other drugs, medicaments and biological substances
CPT/HCPCS: 36415; 36416; 80048; 85025; 93454; 99152; C1769; J1644; J1940; J2001; J2250; Q9967

== ENCOUNTER 2019-06-09 09:26 | Outpatient (CLI) | payer OTHER | END 2019-06-09 09:27 | disposition home or self-care (01) | LOC: DTY/OP 09:26 | PROVIDERS: ATTEND Family Medicine | DX: E66.01 Morbid (severe) obesity due to excess calories (principal) | CPT/HCPCS: 97802 ==

== ENCOUNTER 2019-07-13 09:48 | Outpatient (CLI) | payer OTHER | END 2019-07-13 09:49 | disposition home or self-care (01) | LOC: DTY/OP 09:48 | PROVIDERS: ATTEND Urology | DX: E66.01 Morbid (severe) obesity due to excess calories (principal) | CPT/HCPCS: 97802 ==

== ENCOUNTER 2019-08-05 08:39 | Day surgery (SDC) | payer OTHER ==
[2019-08-04 10:16] VITALS: BMI 37.8
[2019-08-05] MEDS ORDERED: Midazolam HCl 2 mg/2 ml Vial ONE (11:02)
[2019-08-05] MEDS ORDERED: Ketamine 50 MG/ML (10ML VIAL) ONE (11:02)
--- NOTE | 2019-08-05 14:06 | OP ---
DATE OF PROCEDURE: 08/05/2019 PROCEDURES PERFORMED: 1. Colonoscopy with biopsy. 2. Colonoscopy with polypectomy. INDICATIONS FOR PROCEDURE: Prior history of rectal ulceration, adenomatous polyps of the colon. DESCRIPTION OF PROCEDURE: After the risks and benefits of the procedure were explained to the patient including risks of bleeding, infection, perforation, reactions to anesthesia, aspiration, and/or pain, informed consent was obtained. The patient was then taken to the endoscopy suite, where he was placed in the left lateral decubitus position. Once in position, deep sedation was administered via propofol and anesthesia support. Once adequate sedation was achieved, a digital rectal examination was performed followed by introduction of the standard colonoscope into the rectum and advanced to the terminal ileum without difficulty. The quality of the prep was fair with a moderate amount of adherent stool seen throughout the entire colon, limiting visualization. Lesions less than 6 mm in size may have been missed. However, it was adequate for the evaluation of large gross lesions or bleeding. The patient tolerated the procedure well with no immediate perioperative complications. Upon conclusion of the procedure, all equipment was removed from the patient and he was transferred to Day Stay in satisfactory condition. FINDINGS: Digital rectal exam: Normal external examination. Colon findings: Normal-appearing mucosa was seen within the terminal ileum as well as at the ileocecal valve and appendiceal orifice. A moderate amount of adherent stool was seen throughout the entire colon, limiting visualization of the colonic mucosa somewhat, that was marginally amenable to aggressive irrigation and suctioning with a large amount of sterile water. Despite aggressive irrigation, only adequate views were achieved for the evaluation of mucosal lesions 6 mm in size or greater and small mucosal lesions may have been missed of the mucosa seen. Normal-appearing mucosa was seen in the cecum, ascending, and transverse colon. A 3 mm polyp was seen in the descending colon and completely removed with cold snare polypectomy. It was retrieved and placed in a specimen jar for evaluation. However, small patches, measuring 3 to 5 mm in size of increased mucosal erythema, were seen throughout the entire colon, starting in the distal transverse and increasing in density through the descending and sigmoid colon and finally in the rectum. These red spots/patches were sometimes surrounded by a white fibrinous halo. Multiple biopsies were taken from the sigmoid colon and rectum of a admissions representative sample of these patches and placed in a specimen jar for evaluation. Small internal hemorrhoids were seen on rectal retroflexion. The previously seen rectal ulceration was not seen during this examination. IMPRESSION: 1. Fair colonic preparation with a large amount of adherent stool that was not amenable to aggressive irrigation with adequate views achieved for mucosal lesions greater than 6 mm in size. 2. 3 mm descending colon polyp status post cold snare polypectomy. 3. Scattered patches of mucosal erythema, measuring 3 to 5 mm in size with a white fibrinous halo, status post biopsies within the sigmoid and rectum. 4. Small internal hemorrhoids. 5. The previously seen rectal ulceration was not seen during this examination. RECOMMENDATIONS: 1. We would recommend a higher fiber diet given the presence of small internal hemorrhoids. 2. We would follow up on the biopsy results with repeat colonoscopy depending on pathology report. If the pathology findings are benign, we would recommend a repeat colonoscopy in 2 years as previously mentioned during the last colonoscopy approximately 1 year ago. 3. We would hold any anticoagulation for the next 48 hours given the number of biopsies taken today. 4. We will follow up with Dr. Garrido for bariatric surgery next week. 5. Follow up in the GI clinic as needed. Job ID: [id number]
== END 2019-08-05 13:15 | disposition home or self-care (01) ==
LOC: SDC 08:39
PROVIDERS: ATTEND Internal Medicine
DX: D12.4 Benign neoplasm of descending colon (principal); K52.9 Noninfective gastroenteritis and colitis, unspecified; K64.8 Other hemorrhoids; M19.90 Unspecified osteoarthritis, unspecified site; E11.9 Type 2 diabetes mellitus without complications; K21.9 Gastro-esophageal reflux disease without esophagitis; E78.00 Pure hypercholesterolemia, unspecified; G25.81 Restless legs syndrome; Z86.010 Personal history of colon polyps; Z87.891 Personal history of nicotine dependence; Z79.4 Long term (current) use of insulin; Z79.82 Long term (current) use of aspirin; Z79.899 Other long term (current) drug therapy; Z88.6 Allergy status to analgesic agent; Z88.8 Allergy status to other drugs, medicaments and biological substances; Z91.048 Other nonmedicinal substance allergy status
CPT/HCPCS: 36416; 88305; J2250

== ENCOUNTER 2019-08-07 12:30 | Inpatient (IN) | payer OTHER ==
[2019-08-07 12:36] VITALS: BMI 38.1
[2019-08-13] MEDS ORDERED: Heparin 5,000 UNITS/ML VIAL ONE (08:23)
[2019-08-13] MEDS ORDERED: Scopolamine 1.5 mg/72 hour Patch ONE (08:23)
[2019-08-13] MEDS ORDERED: Ketorolac Tromethamine 30 MG/ML VIAL ONE (08:23)
[2019-08-13] MEDS ORDERED: ceFOXitin 2 GM/50 ML Duplex BAG ONE (08:24)
[2019-08-13 09:22] LABS: Hemoglobin 9.5 g/dL (14.0-18.0)
[2019-08-13] MEDS ORDERED: Bupivacaine 0.25% HCL 30 ML VIAL ONE (09:35)
[2019-08-13] MEDS ORDERED: Lidocaine 1% w/Epinephrine 1:100K 20 ML VIAL ONE (09:35)
[2019-08-13] MEDS ORDERED: Midazolam HCl 2 mg/2 ml Vial ONE (10:14)
[2019-08-13] MEDS ORDERED: Fentanyl 100 MCG/2 ML VIAL ONE ×2 (10:14→13:07)
[2019-08-13] MEDS ORDERED: Ondansetron HCl/PF 4 MG/2 ML Vial IVP PRN (12:44)
[2019-08-13] MEDS ORDERED: Promethazine HCl 25 MG/ML VIAL SLOW IVP PRN (12:44)
[2019-08-13] MEDS ORDERED: Promethazine HCl 25 MG/ML VIAL IM PRN ×2 (12:44→13:30)
[2019-08-13] MEDS ORDERED: Morphine 2 MG/ML SYRINGE SLOW IVP PRN (13:30)
[2019-08-13] MEDS ORDERED: Dextrose 50% Abboject 50 ML SYRINGE SLOW IVP PRN (13:30)
[2019-08-13] MEDS ORDERED: Lidocaine 1% PF 5 ML VIAL ONE (13:30)
[2019-08-13] MEDS ORDERED: Ondansetron PF 4 MG/2 ML Vial IVP PRN (13:30)
[2019-08-13] MEDS ORDERED: Dextrose 5% in Water 1,000 ML IV PRN (13:30)
[2019-08-13] MEDS ORDERED: hydrALAZINE 20 MG/ML VIAL SLOW IVP PRN (13:30)
[2019-08-13] MEDS ORDERED: diphenhydrAMINE 50 MG/ML VIAL IVP PRN (13:30)
[2019-08-13] MEDS ORDERED: ePHEDrine/0.9% NaCl/PF SYRINGE 50 mg/10 ml ONE (13:30)
[2019-08-13] MEDS ORDERED: Dexamethasone 20 MG/5 ML VIAL ONE (13:30)
[2019-08-13] MEDS ORDERED: Ondansetron PF 4 MG/2 ML Vial ONE (13:30)
[2019-08-13] MEDS ORDERED: HumaLOG 300 UNITS/3 ML VIAL SC PRN (13:30)
[2019-08-13] MEDS ORDERED: Rocuronium Bromide 10 MG/ML (10ML VIAL) ONE (13:30)
[2019-08-13] MEDS ORDERED: Hydrocodone-Acetamin 15 ML UDCUP PO PRN (13:30)
[2019-08-13] MEDS ORDERED: PROPOFOL 200 MG/20 ML VIAL ONE (13:30)
[2019-08-13] MEDS: Morphine 4 MG/ML VIAL SLOW IVP PRN ×2 (13:54→18:27)
[2019-08-13] MEDS: 1/2 NS w/KCL 20 mEq 1,000 ML IV SCH ×2 (13:55→21:25)
[2019-08-13] MEDS: Acetaminophen 1,000 MG in Premix Bag 1 BAG IVPB SCH ×2 (15:19→21:30)
[2019-08-13] MEDS ORDERED: Amlodipine 5 MG TAB PO SCH (21:00)
[2019-08-13] MEDS ORDERED: Isosorbide Mononitrate (ER) 30 MG TAB PO SCH (21:00)
[2019-08-13] MEDS ORDERED: Enoxaparin Sodium 40 MG/0.4 ML SYRINGE SC SCH (21:00)
[2019-08-14] MEDS: Acetaminophen 1,000 MG in Premix Bag 1 BAG IVPB SCH ×2 (05:00→12:02)
[2019-08-14] MEDS: 1/2 NS w/KCL 20 mEq 1,000 ML IV SCH ×2 (05:04→13:44)
[2019-08-14 05:46] LABS: #Monocytes 0.7 thou/uL (0.11-0.59); #Neutrophils 11.3 thou/uL (1.40-6.50); %Basophils 0.1 % (0.0-1.0); %Eosinophils 0.1 % (0.0-10.0); %Lymphocytes 7.7 % (21.0-51.0); %Monocytes 5.2 % (0.0-10.0); %Neutrophils 86.9 % (42.0-75.0); Hemoglobin 9.8 g/dL (14.0-18.0); Mean Corpuscular HGB CONC 33.8 g/dL (32.0-36.0); Mean Corpuscular Hemoglobin 29.8 pg (27.0-31.0); Mean Corpuscular Volume 88.2 fL (78.0-98.0); Mean Platelet Volume 6.8 fL (7.4-10.4); Platelet Count 255 thou/uL (130-400); RBC Distribution Width 15.1 % (11.5-14.5)
[2019-08-14 05:59] LABS: Anion Gap 18 mmol/L (10-20); BUN (Urea Nitrogen) 39 mg/dL (8.4-25.7); Calc. Creatinine Clearance 58 mL/min (70-130); Calcium 8.4 mg/dL (7.8-10.44); Carbon Dioxide 15 mmol/L (22-29); Chloride 110 mmol/L (98-107); Estimated GFR-MDRD 25; Glucose 99 mg/dL (70-105); Sodium 138 mmol/L (136-145)
[2019-08-14] MEDS ORDERED: Pantoprazole 40 MG VIAL IVP SCH (09:00)
[2019-08-14 16:08] VITALS: BP 142/71; TEMP 97.8
--- NOTE | 2019-08-17 11:15 | OP ---
DATE OF PROCEDURE: 08/13/2019 PREOPERATIVE DIAGNOSIS: Morbid obesity with multiple obesity associated comorbidities including diabetes. POSTOPERATIVE DIAGNOSIS: Morbid obesity with multiple obesity associated comorbidities including diabetes. PROCEDURE PERFORMED: Laparoscopic vertical sleeve gastrectomy using the ViSiGi device. ANESTHESIA: General endotracheal per Anthony Negrete MD. INDICATIONS: The patient is a 53-year-old white male with obesity and multiple obesity associated medical problems. He has undergone extensive education and evaluation and presents at this time to proceed with a sleeve gastrectomy. He has a history of ankylosing spondylitis and a cervical spine fracture. This is left in with a very rigid neck and an extraordinarily difficult airway from an anesthesia standpoint. He was counseled regarding this prior to the surgery. DESCRIPTION OF OPERATION: Informed consent was obtained. The patient was taken to the operating room where general endotracheal anesthesia was obtained with the patient in supine position. Abdomen was prepped with ChloraPrep and draped in sterile fashion. Local anesthetic was infiltrated and 5 mm supraumbilical incision was created through which Veress needle was passed to the peritoneal cavity and pneumoperitoneum established using carbon dioxide up to a pressure of 15 mmHg. A 5 mm trocar port was passed through this same incision. Laparoscopic camera was passed through this port. Under direct vision, 4 additional ports were placed including bilateral 5 mm subcostal ports, a 12 mm right paramedian port and a 15 mm left paramedian port. A 5 mm epigastric incision was created through which Nathansen retractor was passed into the abdominal cavity and used to retract the left lobe of the liver. The patient was placed into reverse Trendelenburg position. The ViSiGi device was advanced within the stomach and used to decompress this. The pylorus was identified and beginning 4 cm proximal to the pylorus, the omentum and vascular tissue along the greater curvature was divided using the LigaSure in an ascending fashion up to the angle of His. All posterior adhesions were mobilized. The short gastric vessels were carefully divided and then hemostasis was maintained using the LigaSure. Once this was completely mobilized, the ViSiGi was carefully positioned at the level of the pylorus and placed to suction, which was clearly defining the lesser curvature of the stomach. The gastrectomy was then performed using a series of fires of the [place] stapler using a green load followed by a gold load and a series of blue loads until completion of the gastrectomy. The ViSiGi along the lesser curvature was used as a size 36 bougie to guide in the gastric division. Care was taken to avoid narrowing the incisura or the gastroesophageal junction. The integrity of the staple line was then assessed by insufflating gas through the ViSiGi while irrigating along the staple line. There was no evidence of an air leak. There was no evidence of bleeding along the staple line. The resected stomach was then removed through the 15 mm port and the fascia was closed with 0 Vicryl suture using a GraNee needle. I then closed the 12 mm port also using the GraNee needle and 0 Vicryl suture. The Nathansen retractor was removed. All ports and instruments were removed under direct vision. All irrigant was aspirated. Pneumoperitoneum was carefully evacuated. 0.25% Marcaine with epinephrine was infiltrated into each port site. Skin edges approximated with 4-0 Monocryl subcuticular suture. Dermabond was placed externally. There were no complications. The patient tolerated the procedure well and was taken to recovery room in stable condition. FINDINGS: The patient had, had unremarkable intraabdominal findings. His liver was essentially healthy, although there was less rim than typical in the upper abdomen for the surgery, it was still able to be performed with excellent visualization without problems or complications. The staple line was reinforced with hemoclips. The only areas of concern with his surgery were anesthesia related in regard to his very difficult airway. He was, however, safely managed before, during, and after the operation. He was taken to recovery room in stable condition without complication or significant blood loss. Job ID: [id number]
== END 2019-08-14 17:31 | disposition home or self-care (01) | DRG 621 ==
LOC: SURG B 08-13 07:35 → SJJU 08-13 13:44
PROVIDERS: ADMIT Specialist; ATTEND Specialist
PROC: 0DB64Z3 Excision of Stomach, Percutaneous Endoscopic Approach, Vertical (ICD-10-PCS; principal; 2019-08-13)
DX: E66.01 Morbid (severe) obesity due to excess calories (principal); Z68.38 Body mass index [BMI] 38.0-38.9, adult; I10 Essential (primary) hypertension; E11.9 Type 2 diabetes mellitus without complications; G25.81 Restless legs syndrome; K21.9 Gastro-esophageal reflux disease without esophagitis; Z87.442 Personal history of urinary calculi
CPT/HCPCS: 36415; 36416; 80048; 85014; 85018; 85025; 88307; 88312; 94760; C9113; J0131; J0694; J1100; J1644; J1650; J1885; J2001; J2250; J2270; J2405; J2704; J3010; J3480; S0020

== ENCOUNTER 2019-10-06 14:39 | Outpatient (CLI) | payer OTHER ==
--- NOTE | 2019-10-06 15:27 | ULT ---
US Renal Bilateral STANDARD HISTORY: Renal stones COMPARISON: 01/01/2019 FINDINGS: The right kidney measures 11.1 cm in length and the left kidney measures 14.2 cm. There is a small cy st in the left kidney measuring about 12 mm. No hydronephrosis seen on either side. The bladder volume measures 90 cc. Patient was unable to void. IMPRESSION: Left renal cyst.
--- NOTE | 2019-10-06 15:29 | RAD ---
XR Abdomen 1 View/KUB HISTORY: Renal stones. Renal insufficiency COMPARISON: 05/18/2019 FINDINGS: There are postop changes in the left upper quadrant. Calcifications in the pancreas are aga in seen, consistent with pancreatitis. The bowel gas pattern is unremarkable. No suspicious calcifications are seen in the projection of the urinary tract.
== END 2019-10-06 14:40 | disposition home or self-care (01) ==
LOC: BICULT 14:39
PROVIDERS: ATTEND Urology
DX: N20.0 Calculus of kidney (principal); N28.9 Disorder of kidney and ureter, unspecified; N28.1 Cyst of kidney, acquired
CPT/HCPCS: 74018; 76770

== ENCOUNTER 2020-10-24 13:07 | Outpatient (CLI) | payer OTHER ==
--- NOTE | 2020-10-24 13:35 | ULT ---
Exam: Bilateral renal ultrasound HISTORY: Evaluate for renal calculi. Renal insufficiency COMPARISON: 10/06/2019 FINDINGS: Right kidney: Normal cortical echotexture. No hydronephrosis. Incidental anechoic focus in the mid re nal cortex compatible with a 1.3 cm cyst. Right kidney measurements: 5.2 x 10.8 x 6.0 cm. cm. Left kidney: Normal cortical echotexture. No hydronephrosis. Anechoic focus in the upper pole of the left kidney measures 1.5 cm, compatible with a cyst Left kidney measurements 6.1 x 12.7 x 8.5 cm. Urinary bladder: Normal mucosa. IMPRESSION: 1. No hydronephrosis 2. Bilateral renal cortical cysts. Cyst noted in the left kidney appears to have slightly increased i n size, previous the measuring 1.3 cm in maximum dimension
--- NOTE | 2020-10-24 13:47 | RAD ---
EXAM: XR Abdomen 1 View/KUB PROVIDED CLINICAL HISTORY: Renal lithiasis and renal insufficiency. Uric acid kidney stones. COMPARISON: 10/06/2019 FINDINGS: Multiple surgical clips and postoperative changes left upper quadrant are again seen. Bowel gas patte rn is nonspecific with mild gaseous distention of large and small loops of bowel. Renal shadows are mostly obscured due to overlying bowel gas. No definitive suspicious calcifications are seen. Again n oted are findings suggestive of ankylosing spondylitis with fusion of the bilateral sacroiliac joints, pubic symphysis, and there is lower lumbar vertebral bodies. IMPRESSION: 1. No suspicious calcifications are evident on this exam. 2. Ankylosing spondylitis.
== END 2020-10-24 13:08 | disposition home or self-care (01) ==
LOC: BICULT 13:07
PROVIDERS: ATTEND Urology
DX: N20.0 Calculus of kidney (principal); N28.9 Disorder of kidney and ureter, unspecified; M45.8 Ankylosing spondylitis sacral and sacrococcygeal region; N28.1 Cyst of kidney, acquired
CPT/HCPCS: 74018; 76770

== ENCOUNTER 2021-08-31 13:09 | Outpatient (CLI) | payer BC ==
[2021-08-31 14:31] LABS: #Basophils 0.1 10x3/uL (0.0-0.2); #Eosinphils 0.3 10x3/uL (0.0-0.5); #Monocytes 0.6 10x3/uL (0.0-1.1); #Neutrophils 5.9 10x3/uL (1.5-8.4); %Basophils 0.9 % (0.0-2.0); %Eosinophils 3.7 % (0.0-6.0); %Monocytes 6.7 % (0.0-10.0); %Neutrophils 65.4 % (40.0-75.0); Hemoglobin 10.9 g/dL (13.5-17.5); Mean Corpuscular HGB CONC 32.8 g/dL (32.0-36.0); Mean Corpuscular Hemoglobin 29.4 pg (27.0-33.0); Mean Corpuscular Volume 89.5 fl (81.2-95.1); Mean Platelet Volume 9.5 fl (7.4-10.4); Platelet Count 226 10x3/uL (150-450); RBC Distribution Width 12.9 % (11.5-14.5); Red Blood Cell (RBC) Count 3.71 10x6/uL (4.32-5.72); White Blood Cell (WBC) Count 9.1 10x3/uL (3.5-10.5)
[2021-08-31 15:11] LABS: Anion Gap 14 mmol/L (10-20); BUN (Urea Nitrogen) 50 mg/dL (8.4-25.7); Calc. Creatinine Clearance 0 mL/min (70-130); Calcium 8.6 mg/dL (7.8-10.44); Carbon Dioxide 21 mmol/L (22-29); Chloride 112 mmol/L (98-107); Glucose 104 mg/dL (70-105); Potassium 4.7 mmol/L (3.5-5.1); Sodium 142 mmol/L (136-145)
[2021-09-01 01:35] LABS: SARS-CoV-2 PCR by NAA Not Detected (NotDetected)
== END 2021-08-31 13:10 | disposition home or self-care (01) ==
LOC: LABBT 13:09
PROVIDERS: ATTEND Specialist
DX: Z01.818 Encounter for other preprocedural examination (principal); K62.1 Rectal polyp; Z20.822 Contact with and (suspected) exposure to COVID-19
CPT/HCPCS: 80048; 85025; 93005; 93010; U0003; U0005

== ENCOUNTER 2022-08-16 14:32 | Outpatient (CLI) | payer BC | END 2022-08-16 14:33 | disposition home or self-care (01) | LOC: ULT 14:32 | PROVIDERS: ATTEND Internal Medicine Nephrology | DX: N18.4 Chronic kidney disease, stage 4 (severe) (principal); N28.1 Cyst of kidney, acquired; R93.421 Abnormal radiologic findings on diagnostic imaging of right kidney; R93.422 Abnormal radiologic findings on diagnostic imaging of left kidney | CPT/HCPCS: 76770 ==

== ENCOUNTER 2023-05-03 12:20 | Emergency (ER) | payer BC ==
[2023-05-03 14:11] LABS: #Basophils 0.1 thou/uL (0.0-0.2); #Eosinphils 0.2 thou/uL (0.0-0.7); #Monocytes 0.6 thou/uL (0.11-0.59); #Neutrophils 8.3 thou/uL (1.40-6.50); %Basophils 0.7 % (0.0-1.0); %Eosinophils 1.4 % (0.0-10.0); %Lymphocytes 14.1 % (21.0-51.0); %Neutrophils 77.5 % (42.0-75.0); Hematocrit 29.7 % (42.0-52.0); Hemoglobin 9.9 g/dL (14.0-18.0); Mean Corpuscular HGB CONC 33.3 g/dL (32.0-36.0); Mean Corpuscular Hemoglobin 29.8 pg (27.0-31.0); Mean Corpuscular Volume 89.5 fl (78.0-98.0); Mean Platelet Volume 9.7 fL (7.4-10.4); Platelet Count 168 10x3/uL (130-400); RBC Distribution Width 12.8 % (11.5-14.5); Red Blood Cell (RBC) Count 3.32 mill/uL (4.70-6.10); White Blood Cell (WBC) Count 10.7 10x3/uL (4.8-10.8)
[2023-05-03 14:29] LABS: ALT (SGPT) Less than 7 U/L (8-55); AST (SGOT) 10 U/L (5-34); Albumin 3.8 g/dL (3.5-5.0); Alkaline Phosphatase 79 U/L (40-110); Anion Gap 11 mmol/L (10-20); BUN (Urea Nitrogen) 19 mg/dL (8.4-25.7); Bilirubin, Total 0.3 mg/dL (0.2-1.2); Calc. Creatinine Clearance 0 mL/min (70-130); Calcium 8.6 mg/dL (7.8-10.44); Carbon Dioxide 29 mmol/L (22-29); Chloride 99 mmol/L (98-107); Estimated GFR 23; Globulin 2.4 g/dL (2.4-3.5); Glucose 111 mg/dL (70-105); Lipase 15 U/L (8-78); Potassium 3.3 mmol/L (3.5-5.1); Protein, Total 6.2 g/dL (6.0-8.3); Sodium 136 mmol/L (136-145)
[2023-05-03 14:31] LABS: Troponin I 0.041 ng/mL (< 0.028)
== END 2023-05-03 15:36 | disposition home or self-care (01) ==
LOC: ERS 12:20
DX: I95.9 Hypotension, unspecified (principal); R79.89 Other specified abnormal findings of blood chemistry; E11.9 Type 2 diabetes mellitus without complications; E78.00 Pure hypercholesterolemia, unspecified; Z79.899 Other long term (current) drug therapy
CPT/HCPCS: 36415; 80053; 83605; 83690; 84484; 85025; 87040; 93005

== ENCOUNTER 2024-02-04 18:28 | Observation (INO) | payer OTHER, MEDICARE ==
[2024-02-04 19:12] LABS: #Basophils 0.06 10x3/uL (0.0-0.2); %Basophils 0.6 % (0.0-1.0); %Eosinophils 1.5 % (0.0-10.0); %Lymphocytes 20.6 % (21.0-51.0); %Monocytes 6.7 % (0.0-10.0); %Neutrophils 70.2 % (42.0-75.0); Hematocrit 34.7 % (42.0-52.0); Hemoglobin 12.4 g/dL (14.0-18.0); Mean Corpuscular HGB CONC 35.7 g/dL (32.0-36.0); Mean Corpuscular Hemoglobin 31.8 pg (27.0-31.0); Mean Platelet Volume 9.1 fL (7.4-10.4); Platelet Count 205 10x3/uL (130-400)
[2024-02-04 19:26] LABS: ALT (SGPT) 13 U/L (8-55); AST (SGOT) 14 U/L (5-34); Albumin 3.6 g/dL (3.5-5.0); Alkaline Phosphatase 102 U/L (40-110); Anion Gap 20 mmol/L (10-20); BUN (Urea Nitrogen) 64 mg/dL (8.4-25.7); Bilirubin, Total 0.5 mg/dL (0.2-1.2); Calc. Creatinine Clearance 0 mL/min (70-130); Calcium 8.4 mg/dL (7.8-10.44); Carbon Dioxide 21 mmol/L (22-29); Chloride 98 mmol/L (98-107); Estimated GFR 7; Globulin 3.7 g/dL (2.4-3.5); Glucose 170 mg/dL (70-105); Potassium 3.6 mmol/L (3.5-5.1); Protein, Total 7.3 g/dL (6.0-8.3); Sodium 135 mmol/L (136-145)
[2024-02-04] MEDS ORDERED: Acetaminophen 325 MG TAB PO PRN (21:31)
[2024-02-04] MEDS ORDERED: Ondansetron ODT 4 MG TAB PO PRN (21:31)
[2024-02-04] MEDS ORDERED: Acetaminophen 650 MG Suppository PR PRN (21:31)
[2024-02-04] MEDS ORDERED: Ondansetron PF 4 MG/2 ML Vial IVP PRN (21:31)
[2024-02-04 22:51] VITALS: BMI 33.2
[2024-02-05] MEDS ORDERED: Ipratropium/Albuterol 3 ML NEB NEB PRN (00:55)
[2024-02-05 05:40] LABS: #Basophils 0.06 10x3/uL (0.0-0.2); %Basophils 0.7 % (0.0-1.0); %Lymphocytes 29.2 % (21.0-51.0); %Monocytes 8.3 % (0.0-10.0); Hematocrit 30.7 % (42.0-52.0); Hemoglobin 10.7 g/dL (14.0-18.0); Mean Corpuscular HGB CONC 34.9 g/dL (32.0-36.0); Mean Corpuscular Hemoglobin 31.7 pg (27.0-31.0); Mean Corpuscular Volume 90.8 fL (78.0-98.0); Mean Platelet Volume 9.3 fL (7.4-10.4); Platelet Count 159 10x3/uL (130-400); RBC Distribution Width 12.9 % (11.5-14.5); Red Blood Cell (RBC) Count 3.38 mill/uL (4.70-6.10)
[2024-02-05 05:54] LABS: Anion Gap 15 mmol/L (10-20); BUN (Urea Nitrogen) 74 mg/dL (8.4-25.7); Calc. Creatinine Clearance 16 mL/min (70-130); Calcium 8.1 mg/dL (7.8-10.44); Carbon Dioxide 22 mmol/L (22-29); Chloride 101 mmol/L (98-107); Estimated GFR 7; Glucose 167 mg/dL (70-105); Potassium 3.3 mmol/L (3.5-5.1); Sodium 135 mmol/L (136-145)
[2024-02-05] MEDS ORDERED: Epoetin (ESRD) 20,000 UNITS/ML MDV SC SCH (07:30)
[2024-02-05] MEDS ORDERED: Cosyntropin 250 MCG VIAL SLOW IVP SCH (07:30)
[2024-02-05 08:15] VITALS: TEMP 97.3
[2024-02-05 08:16] VITALS: BP 119/63
[2024-02-05] MEDS ORDERED: Albumin 25% 25 GM (100 mL) BOT IVPB SCH (12:00)
[2024-02-05] MEDS ORDERED: EPOETIN ALFA-EPBX (ESRD) 10,000 UNITS/ML VIAL SC SCH (12:00)
== END 2024-02-05 11:08 | disposition left against medical advice (07) ==
LOC: ERS 18:28 → 2SW 20:41
PROVIDERS: ADMIT Student in an Organized Health Care Education/Training Program; ATTEND Hospitalist
PROC: B246ZZZ Ultrasonography of Right and Left Heart (ICD-10-PCS; principal; 2024-02-05)
DX: R42 Dizziness and giddiness (principal); N18.6 End stage renal disease; E11.22 Type 2 diabetes mellitus with diabetic chronic kidney disease; Z99.2 Dependence on renal dialysis; D63.1 Anemia in chronic kidney disease; J44.9 Chronic obstructive pulmonary disease, unspecified; M45.9 Ankylosing spondylitis of unspecified sites in spine; I95.9 Hypotension, unspecified; Z88.1 Allergy status to other antibiotic agents; Z88.6 Allergy status to analgesic agent; Z91.048 Other nonmedicinal substance allergy status; Z91.041 Radiographic dye allergy status
CPT/HCPCS: 36415; 70450; 71046; 80048; 80053; 80400; 83690; 83880; 84484; 85025; 93005; 93306; G0378

== ENCOUNTER 2024-03-06 22:06 | Emergency (ER) | payer MEDICARE, OTHER ==
[2024-03-06 23:40] LABS: #Basophils 0.03 10x3/uL (0.0-0.2); %Basophils 0.4 % (0.0-1.0); %Eosinophils 1.7 % (0.0-10.0); %Lymphocytes 27.8 % (21.0-51.0); %Monocytes 6.4 % (0.0-10.0); %Neutrophils 63.2 % (42.0-75.0); Hematocrit 32.9 % (42.0-52.0); Hemoglobin 11.3 g/dL (14.0-18.0); Mean Corpuscular HGB CONC 34.3 g/dL (32.0-36.0); Mean Corpuscular Volume 90.1 fL (78.0-98.0); Mean Platelet Volume 9.2 fL (7.4-10.4); Platelet Count 173 10x3/uL (130-400); RBC Distribution Width 12.9 % (11.5-14.5); Red Blood Cell (RBC) Count 3.65 mill/uL (4.70-6.10)
[2024-03-07 00:01] LABS: ALT (SGPT) 14 U/L (8-55); AST (SGOT) 17 U/L (5-34); Albumin 3.4 g/dL (3.5-5.0); Alkaline Phosphatase 94 U/L (40-110); Anion Gap 19 mmol/L (10-20); BUN (Urea Nitrogen) 72 mg/dL (8.4-25.7); Bilirubin, Total 0.4 mg/dL (0.2-1.2); Calc. Creatinine Clearance 0 mL/min (70-130); Calcium 8.3 mg/dL (7.8-10.44); Carbon Dioxide 23 mmol/L (22-29); Chloride 100 mmol/L (98-107); Estimated GFR 7; Globulin 3.5 g/dL (2.4-3.5); Glucose 162 mg/dL (70-105); Potassium 4.1 mmol/L (3.5-5.1); Protein, Total 6.9 g/dL (6.0-8.3); Sodium 138 mmol/L (136-145)
[2024-03-07 00:03] LABS: Troponin I Less than 0.010 ng/mL (< 0.028)
[2024-03-07 02:24] LABS: Bacteria/HPF None Seen HPF (None Seen); Bilirubin Negative (Negative); Blood, Urine 2+ (Negative); Clarity Clear (Clear); Glucose, Urine (Dipstick) 70 mg/dL (Negative); Ketone, Urine Negative (Negative); Leukocyte Negative Leu/uL (Negative); Nitrite Negative (Negative); Protein, Urine (Dipstick) 200 mg/dL (Neg-Trace); RBC/HPF 0-3 HPF (0-3); Specific Gravity, Urine 1.015 (1.002-1.036); Squamous Epithelial None Seen HPF (0-3); Urobilinogen Normal mg/dL (Less than 2); WBC/HPF 0-3 HPF (0-3); pH, Urine 5.5 (5.0-9.0)
[2024-03-07 02:32] LABS: Urine Culture Reflex Yes Yes
== END 2024-03-07 03:00 | disposition home or self-care (01) ==
LOC: ERS 22:06
DX: R31.9 Hematuria, unspecified (principal); E11.9 Type 2 diabetes mellitus without complications; E78.00 Pure hypercholesterolemia, unspecified; Z55.6 Problems related to health literacy; Z79.899 Other long term (current) drug therapy
CPT/HCPCS: 36416; 71045; 80053; 81001; 83880; 84484; 85025; 87086; 93005

== ENCOUNTER 2024-05-16 22:02 | Emergency (ER) | payer OTHER, MEDICARE ==
[2024-05-16 22:36] LABS: #Basophils 0.07 10x3/uL (0.0-0.2); %Basophils 0.8 % (0.0-1.0); %Eosinophils 1.9 % (0.0-10.0); %Lymphocytes 15.9 % (21.0-51.0); %Monocytes 5.3 % (0.0-10.0); %Neutrophils 75.4 % (42.0-75.0); Hematocrit 34.9 % (42.0-52.0); Hemoglobin 12.5 g/dL (14.0-18.0); Mean Corpuscular HGB CONC 35.8 g/dL (32.0-36.0); Mean Corpuscular Hemoglobin 31.6 pg (27.0-31.0); Mean Corpuscular Volume 88.1 fL (78.0-98.0); Mean Platelet Volume 9.4 fL (7.4-10.4); Platelet Count 195 10x3/uL (130-400); RBC Distribution Width 12.9 % (11.5-14.5); Red Blood Cell (RBC) Count 3.96 mill/uL (4.70-6.10)
[2024-05-16 22:55] LABS: ALT (SGPT) 15 U/L (8-55); AST (SGOT) 14 U/L (5-34); Albumin 3.6 g/dL (3.5-5.0); Alkaline Phosphatase 99 U/L (40-110); Anion Gap 20 mmol/L (10-20); BUN (Urea Nitrogen) 57 mg/dL (8.4-25.7); Bilirubin, Total 0.5 mg/dL (0.2-1.2); Calc. Creatinine Clearance 0 mL/min (70-130); Calcium 8.2 mg/dL (7.8-10.44); Carbon Dioxide 22 mmol/L (22-29); Chloride 101 mmol/L (98-107); Estimated GFR 11; Globulin 3.6 g/dL (2.4-3.5); Glucose 200 mg/dL (70-105); Lipase 17 U/L (8-78); Magnesium 1.9 mg/dL (1.6-2.6); Potassium 2.8 mmol/L (3.5-5.1); Protein, Total 7.2 g/dL (6.0-8.3); Sodium 140 mmol/L (136-145)
[2024-05-16 22:59] LABS: Troponin I Less than 0.010 ng/mL (< 0.028)
[2024-05-17] MEDS ORDERED: Magnesium 2 GM/50 ML BAG (IN WATER) ONE (00:35)
[2024-05-17] MEDS ORDERED: Potassium Chloride 20 MEQ TAB ONE (00:35)
[2024-05-17 01:07] LABS: Actual Bicarbonate (HCO3v) 23.3 mEq/L (22-28); Base Excess -4.5 mEq/L (-2.0 to +3.0); Calcium, Ionized (venous) 0.99 mmol/L (1.16-1.32); Chloride (VBG) 98 mmol/L (98-106); Hematocrit-VBG 36 % (42.0-52.0); Hemoglobin (Hb) 12.4 g/dL (13.1-17.2); Potassium (VBG) 2.82 mmol/L (3.70-5.30); Sodium 139 mmol/L (133-146); pH (venous) 7.245 (7.32-7.43)
== END 2024-05-17 01:13 | disposition home or self-care (01) ==
LOC: ERS 22:02
DX: R55 Syncope and collapse (principal); E87.6 Hypokalemia; I12.0 Hypertensive chronic kidney disease with stage 5 chronic kidney disease or end stage renal disease; N18.6 End stage renal disease; Z55.0 Illiteracy and low-level literacy; E11.22 Type 2 diabetes mellitus with diabetic chronic kidney disease; E78.00 Pure hypercholesterolemia, unspecified; Z79.899 Other long term (current) drug therapy
CPT/HCPCS: 36415; 71045; 80053; 82805; 83690; 83735; 84484; 85025; 86850; 86900; 86901; 93005; 96365; J3475

== ENCOUNTER 2025-06-29 13:23 | Emergency (ER) | payer OTHER, MEDICARE ==
[~2025-06-29 13:23] MED LIST changes: -Furosemide 40 MG/4 ML VIAL ONE; +Iopamidol-370 76% 500 ML MDV (1 ML CHARGE) ONE
[2025-06-29] MEDS ORDERED: Ondansetron PF 4 MG/2 ML Vial ONE (13:51)
[2025-06-29 14:52] LABS: #Basophils 0.07 10x3/uL (0.0-0.2); #Eosinophils 0.06 10x3/uL (0.0-0.7); #Monocytes 0.61 10x3/uL (0.11-0.59); #Neutrophils 8.14 10x3/uL (1.40-6.50); %Basophils 0.7 % (0.0-1.0); %Eosinophils 0.6 % (0.0-10.0); %Lymphocytes 10.9 % (21.0-51.0); %Monocytes 6.0 % (0.0-10.0); %Neutrophils 80.6 % (42.0-75.0); Hematocrit 31.1 % (42.0-52.0); Hemoglobin 10.6 g/dL (14.0-18.0); Mean Corpuscular Hemoglobin 30.2 pg (27.0-31.0); Mean Corpuscular Volume 88.6 fL (78.0-98.0); Platelet Count 185 10x3/uL (130-400); Red Blood Cell (RBC) Count 3.51 mill/uL (4.70-6.10); White Blood Cell (WBC) Count 10.10 10x3/uL (4.8-10.8)
[2025-06-29 15:08] LABS: ALT (SGPT) 14 U/L (Less than 45); AST (SGOT) 19 U/L (11-34); Albumin 3.1 g/dL (3.1-4.5); Alkaline Phosphatase 80 U/L (40-110); Anion Gap 13 mmol/L (10-20); BUN (Urea Nitrogen) 39 mg/dL (8.4-25.7); Bilirubin, Total 0.4 mg/dL (0.3-1.2); Calc. Creatinine Clearance 0 mL/min (70-130); Calcium 9.4 mg/dL (7.8-10.44); Carbon Dioxide 24 mmol/L (22-29); Chloride 102 mmol/L (98-107); Globulin 2.9 g/dL (2.4-3.5); Glucose 178 mg/dL (70-105); Potassium 3.9 mmol/L (3.5-5.1); Sodium 135 mmol/L (136-145)
[2025-06-29] MEDS ORDERED: Aspirin Chewable 81 MG TAB ONE (16:59)
== END 2025-06-29 18:00 | disposition short-term general hospital (02) ==
LOC: ERS 13:23
DX: S12.001A Unspecified nondisplaced fracture of first cervical vertebra, initial encounter for closed fracture (principal); S12.101A Unspecified nondisplaced fracture of second cervical vertebra, initial encounter for closed fracture; E78.5 Hyperlipidemia, unspecified; E11.9 Type 2 diabetes mellitus without complications; Z55.6 Problems related to health literacy; V43.52XA Car driver injured in collision with other type car in traffic accident, initial encounter
CPT/HCPCS: 36415; 70450; 70496; 70498; 71045; 72125; 80053; 85025; 86850; 86900; 86901; 93005; 96374; 96375; 96376; G0390; J2272; J2405